=== PATIENT | male | born 1985 | race American Indian/Alaskan Native ===

== ENCOUNTER 2017-02-17 21:08 | Emergency (ER) | payer OTHER ==
--- NOTE | 2017-02-17 23:53 | Emergency Department Report ---
ED General Adult HPI - General Chief complaint: Animal Bite Stated complaint: INSECT BITES Time Seen by Provider: 02/17/17 23:46 Source: patient, RN notes reviewed Mode of arrival: Ambulatory Limitations: No Limitations - History of Present Illness Initial comments: This is a 31-year-old male. He is previously unknown to me. He presents to the ER with insect bites on his right ankle, and resolved insect bites on his left elbow. He sleeps in a truck. He does not know what bit him. He denies headache, neck pain, chest pain, abdominal pain or shortness of breath. Minimal redness around the right ankle. -: Gradual Location: left, right, upper extremity, lower extremity Consistency: constant Improves with: none Worsens with: none Associated Symptoms: denies other symptoms - Related Data Previous Rx's Medication Instructions Recorded Last Taken Type Permethrin 5% [Acticin 5% CREAM] 1 applicatio TP ONCE #2 tube 02/17/17 Unknown Rx Allergies Allergy/AdvReac Type Severity Reaction Status Date / Time No Known Allergies Allergy Verified 02/17/17 23:12 ED Review of Systems ROS: Stated complaint: INSECT BITES Other details as noted in HPI Constitutional: denies: fever Eyes: denies: vision change ENT: denies: epistaxis Respiratory: denies: cough Cardiovascular: denies: chest pain Gastrointestinal: denies: abdominal pain Musculoskeletal: denies: back pain, joint swelling Skin: rash, lesions ED Past Medical Hx - Past Medical History Previous Medical History?: No - Surgical History Past Surgical History?: No - Social History Smoking Status: Current Some Day Smoker Substance Use Type: Alcohol - Medications Home Medications: Home Medications Medication Instructions Recorded Confirmed Last Taken Type Permethrin 5% [Acticin 5% CREAM] 1 applicatio TP ONCE #2 tube 02/17/17 Unknown Rx ED Physical Exam - General Limitations: No Limitations General appearance: obese - Head Head exam: Present: atraumatic, normocephalic - Eye Eye exam: Present: normal appearance, EOMI. Absent: nystagmus - ENT ENT exam: Present: normal exam, normal orophraynx, mucous membranes moist, normal external ear exam - Neck Neck exam: Present: normal inspection, full ROM. Absent: tenderness, meningismus - Respiratory Respiratory exam: Present: normal lung sounds bilaterally. Absent: respiratory distress, wheezes, rales, rhonchi, stridor, chest wall tenderness - Cardiovascular Cardiovascular Exam: Present: regular rate, normal rhythm, normal heart sounds. Absent: systolic murmur, diastolic murmur, rubs, gallop - GI/Abdominal GI/Abdominal exam: Present: soft, normal bowel sounds. Absent: distended, tenderness, guarding, rebound, rigid, pulsatile mass - Rectal Rectal exam: Present: deferred - Extremities Exam Extremities exam: Present: full ROM, normal capillary refill, other (on the right lateral/distal aspect of the ankle, there is minimal erythema and punctate lesions which appear to be insect bites. There is no streaking or crepitus, the compartments are soft. 2+ pulses are noted in the bilateral upper extremities.). Absent: tenderness, pedal edema, joint swelling, calf tenderness - Back Exam Back exam: Present: normal inspection, full ROM. Absent: tenderness, CVA tenderness (R), paraspinal tenderness - Neurological Exam Neurological exam: Present: alert, oriented X3 - Psychiatric Psychiatric exam: Present: normal affect, normal mood - Skin Skin exam: Present: warm, rash ED Course Vital Signs 02/17/17 23:13 Temperature 98.7 F Pulse Rate 96 H Respiratory 16 Rate Blood Pressure 124/67 O2 Sat by Pulse 95 Oximetry ED Medical Decision Making - Lab Data Vital Signs 02/17/17 23:13 Temperature 98.7 F Pulse Rate 96 H Respiratory 16 Rate Blood Pressure 124/67 O2 Sat by Pulse 95 Oximetry - Medical Decision Making Differential diagnosis: Insect bites Assessment and plan: 31-year-old male with insect bites. He will be treated empirically With permethrin. He is afebrile, with reassuring vital signs, with no obvious evidence of superinfection. He is instructed to have all of his clothing washed with hot soap and water, and to have his place evaluated by the branch operations coordinator. He will be discharged at this time. Return precautions are reviewed. Critical care attestation.: If time is entered above; I have spent that time in minutes in the direct care of this critically ill patient, excluding procedure time. ED Disposition Clinical Impression: Rash Disposition: DC-01 TO HOME OR SELFCARE Is pt being admited?: No Does the pt Need Aspirin: No Condition: Stable Instructions: Insect Bite or Sting (ED) Additional Instructions: Symptoms most likely coming from insect bites. Uncertain what the cause/ organism is. I recommend that you have all clothing washed with gentle soap and hot water, have all linens washed with hot water and soap, and purchase a mattress cover in addition, I recommend that any place that you have recently slept reevaluated by an branch operations coordinator for possible bedbugs/insect infestation. Alternatively, you may elect to purchase new clothing and a new mattress, if you so desire. you may also elect to dispose and throw out your clothing, mattress and linens. However, this is most likely to be much more expensive than the previous option. Medically, either option is acceptable. Return to the ER right away with new pain, worsening pain, migration of pain, fevers, chills, chest pain, shortness of breath, confusion, intractable nausea or vomiting, inability to tolerate liquids since. . Prescriptions: Permethrin 5% [Acticin 5% CREAM] 1 applicatio TP ONCE #2 tube Referrals: JAYNE DREW MD [Staff Physician] - 3-5 Days
[2017-02-18 01:03] VITALS: BP 158/90
== END 2017-02-18 01:03 | disposition home or self-care (01) ==
LOC: ED 21:08
DX: R21 Rash and other nonspecific skin eruption (principal); Z72.0 Tobacco use; W57.XXXA Bitten or stung by nonvenomous insect and other nonvenomous arthropods, initial encounter; Y93.89 Activity, other specified; Y99.9 Unspecified external cause status; Y92.89 Other specified places as the place of occurrence of the external cause
CPT/HCPCS: 99282